=== PATIENT | male | born 1990 | race Caucasian/White ===

== ENCOUNTER 2018-06-05 21:21 | Emergency (ER) | payer SELFPAY ==
--- NOTE | 2018-06-05 22:09 | Emergency Department Record ---
History of Present Illness - General Chief complaint: Extremity Problem Stated complaint: WRIST INJURY Time Seen by Provider: 06/05/18 22:01 Source: Patient Mode of Arrival: Ambulatory Limitations: No limitations - History of Present Illness Initial comments: 28 yo male presents with a left wrist injury. He was at the [employer]. Has lifting a truck on a car and the left wrist hit the truck or roll bar of the car. He has ulnar side pain. He has local swelling. The skin was intact. NO fever or redness. He took off his ring in the ED at my request. MD Complaint: Joint pain Onset/Timin -: Days(s) Location: Left, Hand History of Same: No -: Yes Arthralgia Radiation: Proximal Severity scale (1-10): 6 Quality: Other Consistency: Constant, Intermittent Improves with: Immobilization Worsens with: Exertion Associated Symptoms: Denies other symptoms - Related Data Home Medications Medication Instructions Recorded Confirmed Last Taken Ergocalciferol (Vitamin D2) 1 cap PO WEEKLY 06/05/18 06/05/18 Unknown [Vitamin D2] Famotidine 20 mg PO BID 06/05/18 06/05/18 Unknown Sucralfate 1 gm PO QID 06/05/18 06/05/18 Unknown Allergies Allergy/AdvReac Type Severity Reaction Status Date / Time iodine Allergy HIVES Verified 06/05/18 21:33 Travel Screening - Travel/Exposure Within Last 30 Days Have you traveled within the last 30 days?: No - Travel/Exposure Within Last Year Have you traveled outside the [place] in the last year?: No - Additonal Travel Details Have you been exposed to anyone with a communicable illness?: No - Travel Symptoms Symptom Screening: None Review of Systems Constitutional: Denies: Chills, Fever, Malaise, Weakness Eyes: Denies: Eye discharge ENT: Denies: Congestion, Throat pain Respiratory: Denies: Cough Cardiovascular: Denies: Chest pain, Syncope Endocrine: Denies: Fatigue Gastrointestinal: Denies: Abdominal pain, Diarrhea, Nausea, Vomiting Genitourinary: Denies: Frequency Musculoskeletal: Reports: As per HPI, Arthralgia Skin: Denies: Bruising, Change in color, Rash Neurological: Denies: Headache, Numbness, Tingling, Weakness Psychiatric: Denies: Anxiety Hematological/Lymphatic: Denies: Easy bleeding, Easy bruising Past Medical History - SOCIAL HISTORY Smoking Status: Current every day smoker Alcohol Use: Occasional Drug Use: None - RESPIRATORY Hx Respiratory Disorders: No - CARDIOVASCULAR Hx Cardio Disorders: No - NEURO Hx Neuro Disorders: No - GI Hx GI Disorders: No - Hx Genitourinary Disorders: No - ENDOCRINE Hx Endocrine Disorders: No - MUSCULOSKELETAL Hx Musculoskeletal Disorders: No - PSYCH Hx Psych Problems: No - HEMATOLOGY/ONCOLOGY Hx Hematology/Oncology Disorders: No Family Medical History Any Significant Family History?: No Physical Exam - General General Appearance: Alert, Oriented x3, Cooperative, No acute distress Limitations: No limitations - Head Head exam: Atraumatic, Normal inspection - Eye Eye exam: Normal appearance - ENT ENT exam: Normal exam, Mucous membranes moist, Normal external ear exam Ear exam: Normal external inspection. negative: External canal tenderness Nasal Exam: Normal inspection. negative: Discharge Mouth exam: Normal external inspection Teeth exam: Normal inspection Throat exam: Normal inspection - Neck Neck exam: Normal inspection - Cardiovascular Peripheral Pulses: 2+: Radial (L) - Rectal Rectal exam: Deferred - exam: Deferred - Extremities Extremities exam: Full ROM, Tenderness. negative: Normal inspection Image of Hand: 1 - tenderness, mild STS swelling, intact skin - Neurological Neurological exam: Alert, Oriented X3 - Psychiatric Psychiatric exam: Normal affect, Normal mood - Skin Skin exam: Dry, Intact, Normal color, Warm Course Vital Signs 06/05/18 21:35 Temperature 98.1 F Pulse Rate [ 73 Pulse Ox Probe] Respiratory 20 Rate Blood Pressure 139/92 [Right Arm] Pulse Ox 95 - Reevaluation(s) Reevaluation #1: The prelim XR was reviewed by me No acute fracture or dislocation We discussed RICE care and follow up in the next week if pain continues 06/05/18 22:09 Disposition Disposition: Discharge Clinical Impression: Contusion of wrist, left Qualifiers: Encounter type: initial encounter Qualified Code(s): S60.212A - Contusion of left wrist, initial encounter Disposition: Home, Self-Care Condition: (1) Good Instructions: Wrist Sprain (ED) Additional Instructions: Ice and elevate the wrist to minimize swelling Use the splint for comfort and support See your doctor in about a week If not improved you may need addition tests or referral Forms: Patient Portal Access Time of Disposition: 22:08 Quality - Quality Measures Quality Measures: N/A - Blood Pressure Screening Does Patient Have Any of the Following: No Blood Pressure Classification: Hypertensive Reading Systolic Measurement: 147 Diastolic Measurement: 101 Screening for High Blood Pressure: < Pre-Hypertensive BP, F/U Documented > [ [id number]] Pre-Hypertensive Follow-up Interventions: Referral to alternative/primary care provider.
--- NOTE | 2018-06-06 20:56 | RADIOLOGY REPORT ---
EXAM: WRIST, LEFT 3 VIEWS TECHNIQUE: Four views of the left wrist including a scaphoid view. INDICATION: Injured left wrist. Soft tissue swelling. COMPARISON: None. FINDINGS: The distal radius and distal ulna are without evidence of fracture. There does appear to be soft tissue swelling about the wrist. The proximal and distal carpal bones appear intact. I do not see evidence of metacarpal fracture. Visualized proximal phalanges appear intact. IMPRESSIONS: SOFT TISSUE SWELLING. NO ACUTE BONY ABNORMALITY IDENTIFIED. NO EVIDENCE OF FRACTURE. JOB [facility]BER: [id number] [facility]
== END 2018-06-05 22:34 | disposition home or self-care (01) ==
LOC: ER 21:21
DX: S60.212A Contusion of left wrist, initial encounter (principal); W22.8XXA Striking against or struck by other objects, initial encounter; Y92.39 Other specified sports and athletic area as the place of occurrence of the external cause; F17.210 Nicotine dependence, cigarettes, uncomplicated
CPT/HCPCS: 99283